=== PATIENT | male | born 1960 | race Two or more races ===

== ENCOUNTER 2019-12-16 12:49 | Inpatient (IN) | payer OTHER ==
[~2019-12-16] VITALS: Ht 172.7 cm; Wt 108.9 kg
--- NOTE | 2019-12-16 13:15 | NUR ---
HOSPICE PATIENT CARE SECRETARY NOTE- 59 Y/O MALE BROUGHT IN VIA [facility] FOR DR BRYANT DRUG TRIAL ON VOLUNTARY STATUS. ON FACE TO FACE ASSESSMENT, PT IS AMBULATORY, ALERT ORIENTED TO PERSON PLACE TIME AND PURPOSE. HE IS CALM WITH GOOD EYE CONTACT AND A GOOD HISTORIAN. PT DENIES SI HI AH VH. PERSONAL BELONGINGS REVIEWED BY SCHOOL SUPERVISOR AND STAFF AND PLACED IN PT LOCKER. PT SKIN INTACT.VS FOLLOWS. B/P- 144/97, APICAL HR- 96, RR- 20, TEMP- 98.0 AND SATURATION AT 96% RA. PT ACCU-CHECK- 94, HEIGHT IS 5'8" AND WEIGHT IS 240 POUNDS. PT IS FULL CODE AND ALLERGIES ARE FISH CONTAINING PRODUCTS. PT HERE FOR DR BRYANT DRUG TRIAL ON VOLUNTARY STATUS. UNIT ORIENTATION PROVIDED, PT RIGHT HANDBOOK GIVEN.
[2019-12-16] MEDS ORDERED: PROPRANOLOL HCL 10 MG TABLET PO PRN (14:00)
[2019-12-16] MEDS ORDERED: ACETAMINOPHEN ES 500 MG TABLET PO PRN (14:00)
[2019-12-16] MEDS ORDERED: MAGNESIUM HYDROXIDE 30 ML UDC PO PRN (14:00)
[2019-12-16] MEDS ORDERED: LORAZEPAM 1 MG TABLET FOR AGITATION PO PRN (14:00)
[2019-12-16] MEDS ORDERED: MAG HYDROX/AL HYDROX/SIMETH 30 ML UDC PO PRN (14:00)
[2019-12-16] MEDS ORDERED: IBUPROFEN 200 MG TABLET PO PRN (14:00)
[2019-12-16] MEDS ORDERED: BENZTROPINE MESYLATE (1 MG) 1 MG TABLET PO PRN (14:00)
[2019-12-16 14:28] VITALS: BP 144/97
[2019-12-16 16:00] VITALS: BP 148/91
[2019-12-16] MEDS: NAPROXEN 500 MG PO SCH (17:14)
--- NOTE | 2019-12-16 19:56 | NUR ---
GPS INITIAL NOTES SEEN PT IN HIS ROOM LYING IN BED AWAKE AND ALERT , AMBULATORY, DENIES ANY DISCOMFORT. NO SIGNS OF ANY DISTRESS NOTED. KEPT HIM COMFORTABLE AT ALL TIMES. WILL CONTINUE MONITORING.
[2019-12-16 20:23] VITALS: BP 142/69
[2019-12-16] MEDS: ATORVASTATIN 20 MG PO SCH (21:08)
[2019-12-16] MEDS: SEROQUEL 300 MG PO SCH (21:08)
[2019-12-17 08:00] VITALS: BP 134/61
[2019-12-17] MEDS: OMEPRAZOLE 20 MG PO SCH (08:27)
[2019-12-17] MEDS: NAPROXEN 500 MG PO SCH ×2 (08:27→17:37)
[2019-12-17] MEDS: BENAZEPRIL 10 MG PO SCH (09:36)
[2019-12-17 16:00] VITALS: BP 152/91
[2019-12-17 20:59] VITALS: BP 114/80
[2019-12-17] MEDS: SEROQUEL 300 MG PO SCH (21:09)
[2019-12-17] MEDS: ATORVASTATIN 20 MG PO SCH (21:09)
[2019-12-18] MEDS: OMEPRAZOLE 20 MG PO SCH (07:30)
[2019-12-18 08:00] VITALS: BP 162/106
[2019-12-18] MEDS: NAPROXEN 500 MG PO SCH ×2 (08:32→17:44)
[2019-12-18] MEDS: BENAZEPRIL 10 MG PO SCH (08:32)
[2019-12-18 16:00] VITALS: BP 149/104
--- NOTE | 2019-12-18 19:30 | NUR ---
GPS RN NOTE, RECEIVED PATIENT AWAKE AND IN BED, PATIENT HAS NO COMPLAINTS OF PAIN. PATIENT IS DISPLAYING NO S/S OF APPARENT DISTRESS AT THIS TIME. PATIENT BREATHING IS UNLABORED WITH EQUAL RISE AND FALL OF THE CHEST. PATIENT IS ALERT AND ORIENTED X 4 ON ROOM AIR WITH A SPO2 96%. PATIENT IS COMPLIANT WITH MEDICATION, CALM, ANXIOUS AT TIMES AND COOPERATIVE. PATIENT DENIES SUICIDE IDEATIONS AND HOMICIDAL IDEATIONS AT THIS TIME. PATIENT ASSISTED WITH TURNING AND REPOSITIONING Q2HR AND PRN FOR COMFORT AND CIRCULATION. PATIENT HAS NO NEEDS AT THIS TIME. PATIENT EDUCATED ON THE USE OF THE CALL GROSS. PATIENT BED SIDE RAILS UP X 2 FOR SAFETY, BED IS LOCKED, AND LOW. WILL CONTINUE TO MONITOR Q15MIN WITH THE HELP OF STAFF TO MAINTAIN SAFETY.
[2019-12-18 20:24] VITALS: BP 155/101
[2019-12-18] MEDS: ATORVASTATIN 20 MG PO SCH (21:15)
[2019-12-18] MEDS: SEROQUEL 300 MG PO SCH (21:16)
[2019-12-18] MEDS: ZOLPIDEM TARTRATE 10 MG TABLET PO PRN (22:54)
--- NOTE | 2019-12-18 22:54 | NUR ---
GPS RN NOTE, PATIENT HAS A COMPLAINT OF NOT BEING ABLE TO SLEEP AND IS REQUESTING AMBIEN AT THIS TIME. PATIENT VITAL SIGNS ARE STABLE. GAVE AMBIEN 10 MG PO HS PRN ORDERED. WILL REASSESS FOR INSOMNIA AND I WILL CONTINUE TO MONITOR THIS PATIENT.
[2019-12-19] MEDS: OMEPRAZOLE 20 MG PO SCH (07:29)
[2019-12-19] MEDS: NAPROXEN 500 MG PO SCH ×2 (08:29→16:28)
[2019-12-19] MEDS: BENAZEPRIL 10 MG PO SCH (08:31)
--- NOTE | 2019-12-19 09:00 | NUR ---
RN NOTE- PT IN ROOM, REQUESTING TOWELS AND SHOWER ESSENTIALS FOR ADLS GROOMING. AOX4, DENIES SI HI AH VH. MED COMPLIANT NO BEHAVIORAL ISSUES,
[2019-12-19 16:13] VITALS: BP 141/106
[2019-12-19] MEDS: SEROQUEL 300 MG PO SCH (21:21)
[2019-12-19] MEDS: ATORVASTATIN 20 MG PO SCH (21:21)
--- NOTE | 2019-12-19 21:52 | NUR ---
GPS RN NOTE, PATIENT VITAL SIGNS ARE FOLLOWS B/P 154/105, TEMP 98.4, RESPIRATIONS 19, PULSE 73, SPO2 96 %. PAGED DR BRYANT AND INFORMED HIM OF MY FINDINGS. DR BRYANT ORDERED TO GIVE BENAZEPRIL 10 MG ONCE AT 2230 AND TO GIVE BENAZEPRIL 20 MG PO DAILY. ALL ORDERS NOTED AND CARRIED OUT. WILL CONTINUE TO MONITOR THIS PATIENT.
[2019-12-19] MEDS ORDERED: BENAZEPRIL HCL 10 MG TABLET PO ONE ×2 (22:30→23:30)
[2019-12-19] MEDS: ZOLPIDEM TARTRATE 10 MG TABLET PO PRN (22:35)
--- NOTE | 2019-12-19 22:35 | NUR ---
GPS RN NOTE, PATIENT HAS A COMPLAINT OF NOT BEING ABLE TO SLEEP AND IS REQUESTING AMBIEN AT THIS TIME. PATIENT VITAL SIGNS ARE STABLE. GAVE AMBIEN 10 MG PO HS ORDERED. WILL REASSESS FOR INSOMNIA AND I WILL CONTINUE TO MONITOR THIS PATIENT.
[2019-12-20 08:00] VITALS: BP 143/104
[2019-12-20] MEDS: NAPROXEN 500 MG PO SCH ×2 (08:39→17:10)
[2019-12-20] MEDS: OMEPRAZOLE 20 MG PO SCH (08:39)
[2019-12-20] MEDS: BENAZEPRIL 10 MG PO SCH (09:22)
[2019-12-20 16:00] VITALS: BP 152/100
--- NOTE | 2019-12-20 19:30 | NUR ---
GPS RN NOTE, RECEIVED PATIENT AWAKE AND IN BED, PATIENT HAS NO COMPLAINTS OF PAIN. PATIENT IS DISPLAYING NO S/S OF APPARENT DISTRESS AT THIS TIME. PATIENT BREATHING IS UNLABORED WITH EQUAL RISE AND FALL OF THE CHEST. PATIENT IS ALERT AND ORIENTED X 4 ON ROOM AIR WITH A SPO2 98%. PATIENT IS COMPLIANT WITH MEDICATION, CALM, ANXIOUS AT TIMES AND COOPERATIVE. PATIENT DENIES SUICIDE IDEATIONS AND HOMICIDAL IDEATIONS AT THIS TIME. PATIENT ASSISTED WITH TURNING AND REPOSITIONING Q2HR AND PRN FOR COMFORT AND CIRCULATION. PATIENT HAS NO NEEDS AT THIS TIME. PATIENT EDUCATED ON THE USE OF THE CALL GROSS. PATIENT BED SIDE RAILS UP X 2 FOR SAFETY, BED IS LOCKED, AND LOW. WILL CONTINUE TO MONITOR Q15MIN WITH THE HELP OF STAFF TO MAINTAIN SAFETY.
[2019-12-20 20:00] VITALS: BP 157/108
[2019-12-20] MEDS: ATORVASTATIN 20 MG PO SCH (21:55)
[2019-12-20] MEDS: SEROQUEL 300 MG PO SCH (21:55)
[2019-12-20 22:48] VITALS: BP 158/107
[2019-12-20] MEDS: CLONIDINE HCL 0.1 MG TABLET PO PRN (22:48)
--- NOTE | 2019-12-20 22:48 | NUR ---
GPS RN NOTE, PATIENT VITAL SIGNS ARE FOLLOWS TEMP 98.4, B/P 158/107, PULSE OF 69, RESPIRATIONS 20, SPO2 98 % ON ROOM AIR. PAGED DR BRYANT AND INFORMED HIM OF MY FINDINGS. DR BRYANT ORDERED TO GIVE CLONIDINE 0.1MG PO Q6HR PRN IF SYSTOLIC BLOOD PRESSURE IS GREATER THAN 155 MM HG OR IF DIASTOLIC BLOOD PRESSURE IS GREATER THAN 100 MM HG. GAVE CLONIDINE 0.1MG PO Q6HR PRN ORDERED. WILL REASSESS BLOOD PRESSURE AND I WILL CONTINUE TO MONITOR THIS PATIENT.
[2019-12-20] MEDS: ZOLPIDEM TARTRATE 10 MG TABLET PO PRN (23:57)
[2019-12-21 00:25] VITALS: BP 148/98
[2019-12-21 08:00] VITALS: BP 141/94
[2019-12-21] MEDS: OMEPRAZOLE 20 MG PO SCH (08:05)
[2019-12-21] MEDS: BENAZEPRIL 10 MG PO SCH (08:06)
[2019-12-21] MEDS: NAPROXEN 500 MG PO SCH ×2 (08:23→17:33)
[2019-12-21 16:00] VITALS: BP 141/96
[2019-12-21 20:41] VITALS: BP 152/98
[2019-12-21] MEDS: ATORVASTATIN 20 MG PO SCH (21:33)
[2019-12-21] MEDS ORDERED: SEROQUEL 50 MG PO SCH (22:00)
[2019-12-21] MEDS ORDERED: SEROQUEL 200 MG PO SCH (22:00)
[2019-12-21] MEDS: ZOLPIDEM TARTRATE 10 MG TABLET PO PRN (23:00)
--- NOTE | 2019-12-21 23:00 | NUR ---
GPS RN NOTE: INSOMNIA PT. C/O UNABLE TO SLEEP AND REQUESTED SLEEPING PILL. ADMINISTERED AMBIEN 10 MG PO PRN ORDERED. WILL CONTINUE TO MONITOR
[2019-12-22] MEDS: OMEPRAZOLE 20 MG PO SCH (07:30)
[2019-12-22 08:00] VITALS: BP 129/99
[2019-12-22] MEDS: NAPROXEN 500 MG PO SCH ×2 (09:35→17:00)
[2019-12-22] MEDS: BENAZEPRIL 10 MG PO SCH (09:35)
[2019-12-22 16:00] VITALS: BP 151/82
[2019-12-22 20:15] VITALS: BP 157/94
[2019-12-22] MEDS: SEROQUEL 200 MG PO SCH (21:24)
[2019-12-22] MEDS: ATORVASTATIN 20 MG PO SCH (21:24)
[2019-12-22] MEDS: ZOLPIDEM TARTRATE 10 MG TABLET PO PRN (21:24)
[2019-12-23] VITALS (8 sets, daily range): BP systolic 141–163; BP diastolic 97–112
[2019-12-23] MEDS: OMEPRAZOLE 20 MG PO SCH (08:07)
[2019-12-23] MEDS: NAPROXEN 500 MG PO SCH ×2 (08:07→17:21)
[2019-12-23] MEDS: CLONIDINE HCL 0.1 MG TABLET PO PRN ×3 (08:07→20:42)
[2019-12-23] MEDS: BENAZEPRIL 10 MG PO SCH (08:07)
--- NOTE | 2019-12-23 09:21 | NUR ---
GPS RN OPENING NOTE: RECEIVED PATIENT AOX4. DENIES VAH AND SI/HI. PATIENT IS MED COMPLIANT. COOPERATIVE. RECEIVED CLONIDINE THIS AM FOR HIGH BP ORDERED. BREATHING IS EVEN AND UNLABORED WITH EQUAL RISE AND FALL OF CHEST. SAFETY PRECAUTIONS IN PLACE. BED IN LOCKED AND LOW POSITION WITH 2 SIDE RAILS UP FOR SAFETY. WILL CONTINUE TO MONITOR Q15 FOR MOOD, SAFETY AND BEHAVIOR
[2019-12-23] MEDS ORDERED: BENAZEPRIL 10 MG PO ONE (12:00)
[2019-12-23] MEDS: LORAZEPAM 1 MG TABLET PO SCH ×2 (17:21→20:24)
--- NOTE | 2019-12-23 20:35 | NUR ---
RN NOTES, NOTED BLOOD PRESSURE 163/109, 80, WILL ADMINISTER CATAPRES PRN ORDERED.
[2019-12-23] MEDS: ZOLPIDEM TARTRATE 10 MG TABLET PO SCH (21:04)
[2019-12-23] MEDS: ATORVASTATIN 20 MG PO SCH (21:05)
[2019-12-23] MEDS: SEROQUEL 200 MG PO SCH (21:05)
--- NOTE | 2019-12-23 21:30 | NUR ---
RN NOTES, AFTER RECHECKED PATIENT BLOOD PRESSURE, BLOOD PRESSURE NOTED 142/72, 82, WILL CONTINUE TO MONITOR CLOSELY.
--- NOTE | 2019-12-24 06:44 | NUR ---
RN NOTES, NO SIGNIFICANTS CHANGE IN CONDITION, PATIENT COMPLAIN WITH CARE, NO DISRUPTIVE BEHAVIOR EXHIBITED, ADEQUATE HORS OF SLEEP, WILL ENDORSED CONTINUITY OF CARE TO OCOMING NURSE.
[2019-12-24] MEDS: OMEPRAZOLE 20 MG PO SCH (07:55)
[2019-12-24 08:00] VITALS: BP 142/99
[2019-12-24] MEDS: NAPROXEN 500 MG PO SCH ×2 (08:09→16:47)
[2019-12-24] MEDS: BENAZEPRIL 10 MG PO SCH (08:10)
[2019-12-24] MEDS: LORAZEPAM 1 MG TABLET PO SCH ×4 (08:15→21:42)
[2019-12-24 20:21] VITALS: BP 159/92
[2019-12-24] MEDS: ZOLPIDEM TARTRATE 10 MG TABLET PO SCH ×2 (21:42→23:57)
[2019-12-24] MEDS: ATORVASTATIN 20 MG PO SCH (21:44)
[2019-12-24] MEDS ORDERED: SEROQUEL 150 MG PO SCH (22:00)
[2019-12-25 08:00] VITALS: BP 149/94
[2019-12-25] MEDS: OMEPRAZOLE 20 MG PO SCH (08:41)
[2019-12-25] MEDS: LORAZEPAM 1 MG TABLET PO SCH ×4 (08:50→21:48)
[2019-12-25] MEDS: BENAZEPRIL 10 MG PO SCH (08:50)
[2019-12-25] MEDS: NAPROXEN 500 MG PO SCH ×2 (08:50→16:18)
[2019-12-25 16:00] VITALS: BP 149/95
[2019-12-25 18:05] VITALS: BP 162/102
[2019-12-25] MEDS: CLONIDINE HCL 0.1 MG TABLET PO PRN (18:07)
--- NOTE | 2019-12-25 18:07 | NUR ---
Clonidine 0.1 mg given for BP of 162/102 and RI 90
[2019-12-25 21:15] VITALS: BP 156/99
[2019-12-25] MEDS: ATORVASTATIN 20 MG PO SCH (21:48)
[2019-12-25] MEDS: ZOLPIDEM TARTRATE 10 MG TABLET PO PRN (21:52)
[2019-12-25] MEDS ORDERED: SEROQUEL 50 MG PO SCH (22:00)
[2019-12-26 07:51] VITALS: BP 148/99
[2019-12-26 08:00] VITALS: BP 148/99
[2019-12-26] MEDS: NAPROXEN 500 MG PO SCH ×2 (08:06→16:36)
[2019-12-26] MEDS: LORAZEPAM 1 MG TABLET PO SCH ×4 (08:06→21:20)
[2019-12-26] MEDS: OMEPRAZOLE 20 MG PO SCH (08:06)
[2019-12-26] MEDS: BENAZEPRIL 10 MG PO SCH (08:06)
[2019-12-26 13:35] VITALS: BP 159/108
[2019-12-26] MEDS: CLONIDINE HCL 0.1 MG TABLET PO PRN (13:35)
--- NOTE | 2019-12-26 13:37 | NUR ---
CLONIDINE 0.1 PO ADMINISTERED FOR BP OF 159/108 PULSE 82
[2019-12-26 16:00] VITALS: BP 151/100
[2019-12-26 20:15] VITALS: BP 155/111
--- NOTE | 2019-12-26 21:20 | NUR ---
GPS RN NOTE, PATIENT HAS A COMPLAINT OF FEELING ANXIOUS AND IS REQUESTING ATIVAN AT THIS TIME. PATIENT VITAL SIGNS ARE STABLE. GAVE ATIVAN 1MG PO QID ORDERED. WILL REASSESS ANXIETY AND I WILL CONTINUE TO MONITOR THIS PATIENT.
[2019-12-26] MEDS ORDERED: SEROQUEL 50 MG PO SCH (22:00)
[2019-12-26] MEDS ORDERED: SEROQUEL XR 50 MG PO ONE (22:00)
[2019-12-26] MEDS: ATORVASTATIN 20 MG PO SCH (22:10)
[2019-12-26] MEDS: ZOLPIDEM TARTRATE 10 MG TABLET PO SCH (22:10)
--- NOTE | 2019-12-27 07:50 | NUR ---
RN NOTE THE PATIENT IS RECEIVED IN BED. PATIENT IS ALERT AND ORIENTED X4. DENIES SOB. RESPIRATION REGULAR AND UNLABORED. DENIES PAIN. THE PATIENT IN NO APPARENT DISTRESS. DENIES VISUAL OR AUDITORY HALLUCINATIONS. DENIES SI AND HI. SAFETY MEASURES TAKEN. BED LOW AND LOCKED. WILL CONTINUE TO MONITOR.
[2019-12-27] MEDS: BENAZEPRIL 10 MG PO SCH (07:56)
[2019-12-27] MEDS: OMEPRAZOLE 20 MG PO SCH (07:56)
[2019-12-27] MEDS: LORAZEPAM 1 MG TABLET PO SCH ×4 (07:56→20:51)
[2019-12-27 08:00] VITALS: BP 152/96
[2019-12-27 16:00] VITALS: BP 151/88
--- NOTE | 2019-12-27 17:39 | NUR ---
RN NOTE THE PATIENT A/O X4. DENIES SI, HI AND ANY TYPE OF HALLUCINATIONS. RESPIRATION REGULAR AND UNLABORED. DENIES SOB. DENIES PAIN. THE PATIENT IS COOPERATIVE AND MED COMPLIANT. SAFETY CHECKS DONE. ALL NEEDS ATTENDED AND ANTICIPATED. BED LOW AND LOCKED. WILL ENDORSE TO IN SCHOOL SUSPENSION COORDINATOR.
[2019-12-27 20:00] VITALS: BP 155/98
[2019-12-27] MEDS: ATORVASTATIN 20 MG PO SCH (21:29)
[2019-12-27] MEDS: ZOLPIDEM TARTRATE 10 MG TABLET PO SCH (21:29)
[2019-12-27 22:00] VITALS: BP 148/98
[2019-12-27] MEDS ORDERED: SEROQUEL 200 MG PO ONE (22:00)
[2019-12-28] MEDS: OMEPRAZOLE 20 MG PO SCH (07:47)
[2019-12-28 08:00] VITALS: BP 157/93
[2019-12-28] MEDS: BENAZEPRIL 10 MG PO SCH (08:42)
[2019-12-28] MEDS: LORAZEPAM 1 MG TABLET PO SCH ×4 (08:42→21:23)
[2019-12-28 16:00] VITALS: BP 149/99
--- NOTE | 2019-12-28 19:30 | NUR ---
GPS RN NOTES RECEIVED PATIENT FROM MORNING SHIFT, ALERT AND ORIENTED X 3. AMBULATORY, VERBALLY RESPONSIVE AND ABLE TO FOLLOW DIRECTIONS. BREATHING REGULAR AND UNLABORED ON ROOM AIR. DENIES ANY SUICIDAL IDEATION, NO COMPLAINTS OF PAIN/DISCOMFORT REPORTED AT THIS TIME. BED LOW AND LOCKED ON SEMI FOWLERS POSITION. WILL CONTINUE TO MONITOR.
[2019-12-28 20:00] VITALS: BP 159/108
[2019-12-28] MEDS: CLONIDINE HCL 0.1 MG TABLET PO PRN (20:03)
--- NOTE | 2019-12-28 20:15 | NUR ---
GPS RN NOTES NOTED WITH BP 159/108, CATAPRES 0.1MG GIVEN SUBLINGUAL. NON-PHARMACOLOGICAL INTERVENTIONS PROVIDED. WILL CONTINUE TO MONITOR.
--- NOTE | 2019-12-28 21:15 | NUR ---
GPS RN NOTES RECHECK BP 152/89
[2019-12-28 21:24] VITALS: BP 159/108
[2019-12-28] MEDS: ATORVASTATIN 20 MG PO SCH (21:24)
[2019-12-28] MEDS ORDERED: SEROQUEL 300 MG PO ONE (22:00)
[2019-12-28] MEDS: ZOLPIDEM TARTRATE 10 MG TABLET PO SCH (22:22)
--- NOTE | 2019-12-29 06:25 | NUR ---
GPS RN NOTES PATIENT IN BED ALERT AND ORIENTED X 3. AFEBRILE WITH NO S/S OF DISTRESS OBSERVED. DENIES ANY PAIN/DISCOMFORT. BED LOW AND LOCKED ON SEMI FOWLERS POSITION. WILL ENDORSE TO MORNING SHIFT FOR ZOFIA.
[2019-12-29] MEDS: OMEPRAZOLE 20 MG PO SCH (07:50)
[2019-12-29 08:00] VITALS: BP 157/95
[2019-12-29] MEDS: LORAZEPAM 1 MG TABLET PO SCH ×4 (08:27→20:47)
[2019-12-29] MEDS: BENAZEPRIL 10 MG PO SCH (08:28)
--- NOTE | 2019-12-29 09:00 | NUR ---
RN NOTE- PT OOB IN HALLS, PO INTAKE GOOD VS STABLE. B/P SLIGHTLY ELEVATED HOWEVER. RX GIVEN MED COMPLIANT .
[2019-12-29 16:00] VITALS: BP 141/97
--- NOTE | 2019-12-29 20:00 | NUR ---
RN note:Patient is visible in the unit,pleasant ,calm upon approach.Patient c/o feeling depressed,with blunted affect;no verbalization of thoughts and feelings.No s/s of acute distress noted.Will continue to monitor q15 min rounds for safety.
[2019-12-29 20:31] VITALS: BP 151/96
[2019-12-29] MEDS: ATORVASTATIN 20 MG PO SCH (21:39)
[2019-12-29] MEDS: SEROQUEL 400 MG PO SCH (21:39)
[2019-12-29] MEDS: ZOLPIDEM TARTRATE 10 MG TABLET PO SCH (21:39)
[2019-12-30] MEDS: OMEPRAZOLE 20 MG PO SCH (07:30)
[2019-12-30 08:00] VITALS: BP 141/100
[2019-12-30] MEDS: BENAZEPRIL 10 MG PO SCH (08:52)
[2019-12-30] MEDS: LORAZEPAM 1 MG TABLET PO SCH ×4 (08:52→21:06)
[2019-12-30] MEDS ORDERED: LORAZEPAM 1 MG TABLET PO PRN (12:00)
[2019-12-30 16:00] VITALS: BP 163/90
--- NOTE | 2019-12-30 20:06 | NUR ---
GPS RN note: Received patient in bed awake,guarded,paranoid,fair eye contact ,depressed and blunted affect upon approach.Patient is unmotivated,no social interaction with peers ;isolative,withdrawn,no verbalization of thoughts and feelings,remains preoccupied to his own thoughts.No s/s of acute distress noted.Will continue to monitor q15 min rounds for safety.
[2019-12-30 20:59] VITALS: BP 149/95
[2019-12-30] MEDS: SEROQUEL 400 MG PO SCH (21:56)
[2019-12-30] MEDS: ATORVASTATIN 20 MG PO SCH (21:56)
[2019-12-30] MEDS: ZOLPIDEM TARTRATE 10 MG TABLET PO SCH (21:59)
[2019-12-30] MEDS ORDERED: [UNRECOGNIZED DRUG - OTHER] PO SCH (22:00)
[2019-12-31 08:00] VITALS: BP 153/90
[2019-12-31] MEDS: OMEPRAZOLE 20 MG PO SCH (08:28)
[2019-12-31] MEDS: BENAZEPRIL 10 MG PO SCH (08:28)
[2019-12-31] MEDS: LORAZEPAM 1 MG TABLET PO SCH (08:28)
--- NOTE | 2019-12-31 08:30 | NUR ---
RN-CO: DR BRYANT GAVE A DISCHARGE ORDER FOR PATIENT TODAY. PATIENT SIGN ALL DISCHARGE PAPERS AFTER I EXPLAINED IT TO HIM AND HE VERBALIZED UNDERSTANDING. ALL BELONGINGS AND VALUABLES WAS GIVEN BACK TO THE PATIENT. PATIENT DENIED SI/HI.AH/VH. HE WAS INSTRUCTED TO SEE DR SINGLETON RIGHT AWAY. HE WAS PICKED UP BY DR BRYANT'S STAFF.
[2020-01-02] MEDS ORDERED: LORAZEPAM 1 MG TABLET PO PRN (12:00)
[2020-01-06] MEDS ORDERED: LORAZEPAM 1 MG TABLET PO PRN (12:00)
[2020-01-13] MEDS ORDERED: LORAZEPAM 1 MG TABLET PO PRN (12:00)
[2020-01-20] MEDS ORDERED: LORAZEPAM 1 MG TABLET PO PRN (12:00)
[2020-01-27] MEDS ORDERED: LORAZEPAM 1 MG TABLET PO PRN (12:00)
[2020-02-03] MEDS ORDERED: LORAZEPAM 1 MG TABLET PO PRN (12:00)
[2020-02-10] MEDS ORDERED: LORAZEPAM 1 MG TABLET PO PRN (12:00)
== END 2019-12-31 09:55 | disposition home or self-care (01) | DRG 951 ==
LOC: GPS 12:54 → MEDOV2 15:10 → GPS 19:41 → MEDOV2 12-17 00:50
PROVIDERS: ADMIT Psychiatry & Neurology Psychiatry; ATTEND Psychiatry & Neurology Psychiatry
DX: Z00.6 Encounter for examination for normal comparison and control in clinical research program (principal); F20.0 Paranoid schizophrenia; F29 Unspecified psychosis not due to a substance or known physiological condition; F41.9 Anxiety disorder, unspecified; Z79.899 Other long term (current) drug therapy; F14.11 Cocaine abuse, in remission; Z96.651 Presence of right artificial knee joint; Z98.890 Other specified postprocedural states; I10 Essential (primary) hypertension; M17.0 Bilateral primary osteoarthritis of knee; E78.00 Pure hypercholesterolemia, unspecified
CPT/HCPCS: 82962-TC; 87081-TC; G0378

== ENCOUNTER 2020-12-17 10:13 | Emergency (ER) | payer MEDICARE, OTHER ==
[~2020-12-17] VITALS: Ht 172.7 cm; Wt 104.3 kg
--- NOTE | 2020-12-17 10:25 | NUR ---
THE PATIENT BIBS FOR C/O FELLING SUICIDAL BY OVERDOSING ON SEROQUEL. THE PATIENT DENIES HI. DENIES PAIN. IN ROOM AIR AND DENIES SOB. RESPIRATION REGULAR AND UNLABORED. SAFETY MEASURES TAKEN. SITTER AT THE BEDSIDE. WILL CONTINUE TO MONITOR THE PATIENT.
[2020-12-17 10:36] LABS: BILIRUBIN,URINE Negative (NEGATIVE); COLOR,URINE YELLOW (YELLOW); LEUKOCYTE ESTERASE ,URINE Negative (NEGATIVE); NITRITE, URINE Negative (NEGATIVE); PROTEIN,URINE Negative (NEGATIVE); UGLUCOSE Negative (NEGATIVE)
[2020-12-17 10:45] LABS: BASOPHILS # (AUTO) 0.1 /CMM (0.0-0.2); EOSINOPHILS % (AUTO) 1.3 % (0.0-6.0); HEMATOCRIT 48 % (39-51); HEMOGLOBIN 16.2 g/dL (13.5-17.5); LYMPHOCYTES # (AUTO) 1.4 /CMM (0.8-4.8); LYMPHOCYTES % (AUTO) 14.1 % (20.0-44.0); MEAN CORPUSCULAR HGB CONC 34 g/dl (31.0-36.0); MEAN CORPUSCULAR VOLUME 94 fL (80-96); MONOCYTES # (AUTO) 0.5 /CMM (0.1-1.30); MONOCYTES % (AUTO) 5.4 % (2.0-12.0); NEUTROPHILS # (AUTO) 7.6 /CMM (1.8-8.9); NEUTROPHILS % (AUTO) 78.2 % (43.0-81.0); PLATELET COUNT (AUTO) 299 /CMM (150-450); RED BLOOD CELL COUNT(AUTO) 5.13 MIL/uL (4.5-6.0); WHITE BLOOD COUNT (AUTO) 9.7 K/uL (4.3-11.0)
[2020-12-17 10:48] LABS: BACTERIA,URINE None seen /HPF (None Seen); RBC,URINE 0-2 /HPF (0-2); SQUAMOUS EPITHELIAL CELL,UR Few /HPF (None Seen); WBC,URINE 0-2 /HPF (0-3)
[2020-12-17 10:53] LABS: CALCIUM, SERUM 9.2 mg/dL (8.5-10.1); CARBON DIOXIDE 29 mmol/L (21-32); CHLORIDE 101 mmol/L (98-107); CREATININE 1.1 mg/dL (0.6-1.3); GLUCOSE 159 mg/dL (74-106); POTASSIUM 4.2 mmol/L (3.5-5.1); SODIUM SERUM 137 mmol/L (136-145); UREA NITROGEN, BLOOD 15 mg/dL (7-18)
--- NOTE | 2020-12-17 10:58 | NUR ---
COVID SWAB SENT.
[2020-12-17 10:59] LABS: ALANINE AMINOTRANSFERASE 36 U/L (12-78); ALBUMIN 4.2 g/dL (3.4-5.0); ALCOHOL, BLOOD < 3 mg/dL (0-0); ALKALINE PHOSPHATASE 137 U/L (46-116); ASPARTATE AMINOTRANSFERASE 17 U/L (15-37); BILIRUBIN,DIRECT 0.1 mg/dL (0.0-0.2); BILIRUBIN,TOTAL 0.5 mg/dL (0.2-1.0); TOTAL PROTEIN, SERUM 7.8 g/dL (6.4-8.2)
[2020-12-17 11:00] LABS: ACETAMINOPHEN < 0 ug/ml (10-30)
--- NOTE | 2020-12-17 11:15 | NUR ---
Social Service Consult: regulatory services consultant consult requested for suicidal ideation with a plan. Patient is a 60-year-old, -[place] male. SW met with the patient at his hospital bed in the emergency department. Patient was alert and oriented x4. Patient was resting. Per patients chart, patient was brought in to the hospital by self on 12/17/2020, stating that he has been feeling suicidal, with a plan to overdose on Seroquel. Patient stated that he currently lives at [address] [place] [address]; [phone] with roommates. Patient reports that his friend brought him to the emergency department. SW asked patient about his suicidal ideation and patient stated that he is currently having suicidal ideation with a plan to overdose on Seroquel. Patient denies homicidal ideation. SW asked patient if he would consider going to a psychiatric hospital voluntarily for further treatment, due to his current suicidal ideation. Patient agrees with this discharge plan. SW asked patient about his history of mental illness and patient stated that he has a history of Depression, Bipolar Disorder and Schizophrenia. Patient stated that he is currently taking Seroquel but stopped taking his medication for the last three days. Patient reports that he sees his outpatient psychiatrist regularly. SW asked patient if he has experienced hallucinations or delusions and patient stated that he is not currently experiencing hallucinations but has had visual hallucinations in the past where he sees shadows. SW asked patient if he has a history of substance use and patient stated that he used cocaine yesterday a couple of times and has been using this substance regularly about 1x/month. SW asked if patient is currently receiving any income and patient stated he receives SSI. SW assessed if patient has access to adequate social support and patient stated that he has social support from his roommates. SW discussed substance abuse and outpatient mental health resources with the patient. Patient accepted substance abuse and outpatient mental health resources, stating that he is open to seeking help. SW discussed discharge plan with the patient and patient agrees to go to [facility] voluntarily for further treatment. PLAN: SW will fax clinicals to [facility] [phone]. No further SS intervention at this time, however SW will remain available as needed. Counseling--Outpatient [facility] [address], [place] [address] (Specializes in in-depth psychotherapy for emotional distress: anxiety, depression, interpersonal conflicts, life transitions, childhood abuse) PSYCHIATRIC OUTPATIENT SERVICES [facility] Partial Hospitalization and Intensive Outpatient Program (Managed Care and [place] Only) [address] [facility] [address] [facility] Partial Hospitalization and Outpatient Program [address] [place], [place] [id number] [facility] Partial Hospitalization and Outpatient Program [address] [place] [address] [facility] [address] [place] [address] [facility] Partial Hospitalization and Outpatient Program [address] [place], [place] [phone] Substance use resources provided included: [facility] Substance Abuse Self-Helpline (SAS) ; [facility] [address] [facility] [id number] ; [facility] [address] [facility] [address] ; [facility] [address] [id number] ; [facility] [address] [facility] [phone] ; [facility] [address] [facility] [address] ; [facility]; [facility] [place]; [facility]; Alcoholics Anonymous -[facility]
--- NOTE | 2020-12-17 11:20 | NUR ---
Churn Tender note: [facility] faxed clinicals to [facility], .
[2020-12-17 14:44] VITALS: BP 137/82
--- NOTE | 2020-12-17 14:44 | NUR ---
THE PATIENT ALERT AND ORIENTED X4. DENIES PAIN. DENIES SOB. WATCHING TV. WILL CONTINUE TO MONITOR THE PATIENT.
--- NOTE | 2020-12-17 16:10 | NUR ---
PT ACCEPTED TO [facility]. PLEASE CALL SARABJIT AT [phone].
--- NOTE | 2020-12-17 16:13 | NUR ---
report given to lyn barcenas.
--- NOTE | 2020-12-17 16:14 | NUR ---
CALLED [facility] FOR TRANSPORT. ETA 30-45.
--- NOTE | 2020-12-17 17:12 | NUR ---
REPORT GIVEN TO EMT FOR TRANSPORT, [facility] [address].
--- NOTE | 2020-12-17 17:30 | NUR ---
PATIENT TRANSFERRED TO [facility] IN STABLE CONDITION.
== END 2020-12-17 18:18 ==
LOC: ER 10:16
DX: R45.851 Suicidal ideations (principal); F31.9 Bipolar disorder, unspecified; F20.9 Schizophrenia, unspecified; Z20.822 Contact with and (suspected) exposure to COVID-19
CPT/HCPCS: 36415; 80048-TC; 80076-TC; 81001; 85025-TC; C9803; G0480